=== PATIENT | male | born 1985 | race Two or more races ===

== ENCOUNTER 2018-05-27 10:09 | Emergency (ER) | payer MEDICAID ==
[~2018-05-27] VITALS: Ht 170.2 cm; Wt 77.3 kg
[2018-05-27 10:11] VITALS: Ht 170.2 cm; Wt 77.3 kg
[2018-05-27 11:11] LABS: HEMATOCRIT 50.4 % (42.0-54.0); HEMOGLOBIN 17.7 g/dL (13.5-17.5); MCH 33.5 pg (26.0-34.0); MCHC 35.1 g/dL (31.0-37.0); MCV 95.3 fL (80.0-100.0); MEAN PLATELET VOLUME 10.6 fL (7.4-10.4); PLATELET COUNT 271 10x3/uL (130-400); RBC 5.29 10x6/uL (4.20-6.10); RDW 12.6 % (11.5-14.5); WBC 35.2 10x3/uL (4.8-10.8)
[2018-05-27 11:20] LABS: APPEARANCE CLEAR (CLEAR); BILIRUBIN NEGATIVE (NEGATIVE); COLOR YELLOW (YELLOW); GLUCOSE 50 mg/dL (NEGATIVE); KETONE NEGATIVE (NEGATIVE); NITRITE NEGATIVE (NEGATIVE); PROTEIN 3+ mg/dL (NEGATIVE); UROBILINOGEN NORMAL (NORMAL)
[2018-05-27 11:21] LABS: BACTERIA MODERATE /hpf (NONE SEEN); EPITHELIAL CELLS 0-5 /hpf (0-5); MUCUS <1+ /lpf (NONE SEEN); RED CELLS - URINE 0-5 /hpf (0-5)
[2018-05-27 11:22] LABS: ALKALINE PHOSPHATASE 68 U/L (46-116); ALT (SGPT) 52 U/L (10-68); BILIRUBIN - TOTAL 0.46 mg/dL (0.2-1.3); CALC OSMOLALITY 277 mosm/kg (275-300); CALCIUM 9.1 mg/dL (8.5-10.1); CARBON DIOXIDE 27.2 mmol/L (21.0-32.0); CHLORIDE - SERUM 100 mmol/L (98-107); CREATININE - SERUM 1.1 mg/dL (0.6-1.3); GLUCOSE 122 mg/dL (74-106); POTASSIUM - SERUM 4.1 mmol/L (3.5-5.1); PROTEIN - SERUM 7.8 g/dL (6.4-8.2); SODIUM 138 mmol/L (136-145); UREA NITROGEN 14 mg/dL (7-18); eGFR NON AFRICAN AMERICAN 81 mL/min (90-120)
[2018-05-27 11:46] LABS: LYMPHOCYTES 6 % (15-50); MONOCYTES 3 % (2-11); NEUTROPHILS 82 % (40-80); PLATELET ESTIMATE NORMAL
[2018-05-27 11:47] LABS: CREATINE KINASE 811 UL (21-232)
[2018-05-27 11:50] LABS: TROPONIN-I 0.151 ng/mL (0.000-0.060)
[2018-05-27 12:56] VITALS: BP 154/88
== END 2018-05-27 13:34 | disposition other institution (70) ==
LOC: D.ER 10:09
PROVIDERS: Emergency Medicine
DX: S42.102A Fracture of unspecified part of scapula, left shoulder, initial encounter for closed fracture (principal); W13.2XXA Fall from, out of or through roof, initial encounter; Y93.89 Activity, other specified; Y92.89 Other specified places as the place of occurrence of the external cause; R79.89 Other specified abnormal findings of blood chemistry; S22.42XA Multiple fractures of ribs, left side, initial encounter for closed fracture; J93.9 Pneumothorax, unspecified; T79.7XXA Traumatic subcutaneous emphysema, initial encounter